=== PATIENT | female | born 1960 | race Caucasian/White ===

== ENCOUNTER 2025-03-10 12:20 | Inpatient (IN) | payer MEDICAID ==
[~2025-03-10] VITALS: Ht 175.3 cm; Wt 77.8 kg
--- NOTE | 2025-03-10 13:05 | HISTORY AND PHYSICAL ---
LIV RIBERA Mar 10, 2025 13:05
[2025-03-10 14:21] VITALS: RESP 16; O2SAT 97
[2025-03-10] MEDS ORDERED: OMEP20CA16 PO (18:23)
[2025-03-10] MEDS ORDERED: CHOLECALCIFEROL PO (18:23)
[2025-03-10] MEDS ORDERED: ATOR20TA PO (18:23)
[2025-03-10] MEDS ORDERED: BENZ1TAB97 PO (18:23)
[2025-03-10] MEDS ORDERED: FURO-150 PO (18:23)
[2025-03-10] MEDS ORDERED: PREG100C PO (18:23)
[2025-03-10] MEDS ORDERED: FLUO40CA10 PO (18:23)
[2025-03-10] MEDS ORDERED: POTA8TAB69 PO (18:23)
[2025-03-10] MEDS ORDERED: SUCR1TAB34 PO (18:23)
[2025-03-10] MEDS ORDERED: DULO60CA59 PO (18:23)
[2025-03-10] MEDS ORDERED: minipress PO (18:23)
[2025-03-10] MEDS ORDERED: QUET-1 PO (18:23)
[2025-03-10] MEDS ORDERED: folic PO (18:23)
[2025-03-10] MEDS ORDERED: LURA60TA PO (18:28)
[2025-03-10] MEDS ORDERED: LAMO25TA4 PO (18:28)
[2025-03-10 19:37] VITALS: RESP 14; O2SAT 97
[2025-03-10 19:41] VITALS: BP 97/58; PULSE 76; RESP 14; TEMP 98.3; O2SAT 97
[2025-03-10] MEDS ORDERED: loperamide 2mg capsule PO PRN (20:00)
[2025-03-10] MEDS ORDERED: mag hydrox/Alum hydrox/simeth 30ml oral suspension PO PRN (20:00)
[2025-03-10] MEDS ORDERED: magnesium hydroxide 30ml (MOM) UD suspension PO PRN (20:00)
[2025-03-10] MEDS ORDERED: FOLI1TAB27 PO (20:17)
[2025-03-10] MEDS ORDERED: ERGO500041 PO (20:17)
[2025-03-10] MEDS ORDERED: PRAZ1CAP5 PO (20:17)
[2025-03-10] MEDS: ergocalciferol (vit D2) capsule 50,000 UNITS (1,250mcg) CAPSULE PO SCH (20:40)
[2025-03-11 07:00] VITALS: RESP 16; O2SAT 100
[2025-03-11] MEDS: duloxetine 30mg CAPSULE.DR PO SCH (07:32)
[2025-03-11] MEDS: benztropine 1mg tablet PO SCH (07:34)
[2025-03-11] MEDS: pantoprazole 40mg Tablet.DR PO SCH (07:35)
[2025-03-11 08:00] VITALS: BP 97/60; PULSE 70; RESP 16; TEMP 98.1; O2SAT 100
[2025-03-11] MEDS: potassium chloride 8mEq ER tablet PO SCH (09:17)
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
--- NOTE | 2025-03-11 16:21 | ELECTROCARDIOGRAPH REPORT ---
[facility] Test Date: 2025-03-11 Test Time: 14:31:32 Pat Name: PRICE SILVA Department: 3rd FLOOR PCU Room: [facility] B Gender: F Project Portfolio Analyst: : 1960 Requested By: TOMMY RIZO Order Number: [id number] Reading MD: Dr. TONO Tang Measurements Intervals [place] Rate: 70 P: 46 SD: 163 QRS: 35 QRSD: 97 T: 42 QT: 411 QTc: 444 Interpretive Statements Sinus rhythm Borderline low voltage, extremity leads Electronically Signed On 03-11-2025 18:19:[address] TONO Tang Please click the below link to view image of tracing.
[2025-03-11 18:11] LABS: CHOL/HDL RATIO 3.0 (0.00-4.99); LDL CHOLESTEROL 108 MG/DL (50-100)
[2025-03-11 19:16] VITALS: RESP 16; O2SAT 98
[2025-03-11 19:20] VITALS: BP 107/71; PULSE 73; RESP 16; TEMP 98.4; O2SAT 98
--- NOTE | 2025-03-11 20:24 | HISTORY AND PHYSICAL ---
History & Physical Providers to CC ~ History of Present Illness Reason for Admit\\Complaint: Suicidal ideation/ suicidal gesture History of Present Illness This is the hospitalist history and physical exam note on patients hospitalized at [facility] [place] [facility]. The patient is on a 5150 hold for suicidal ideation she cut on her wrist superficially and thus this was a suicidal gesture as well per the psychiatry provider note the patient has audiovisual hallucinations when overwhelmed and sees things not there. The patient has no acute medical complaints the patient has has a stroke previously and her LDL cholesterol is 108 and HDL 75 with a total cholesterol of 223 the patient is on 20 mg of atorvastatin which is increased to 40 mg Allergies: Coded Allergies: No Known Allergies (Unverified , 03/10/25) Home Medications Home Medications Active Reported Prazosin Hcl 1 Mg Capsule 1 Cap PO HS Folic Acid* (Folic Acid) Y Tab 1 Tab PO DAILY Vitamin D2 (Ergocalciferol (Vitamin D2)) 1,250 Mcg (93031 Unit) Capsule 1 Cap PO Q7D Latuda (Lurasidone HCl) 60 Mg Tablet 1 Tab PO DAILY Lamictal (Lamotrigine) 25 Mg Tab.disper 100 Mg PO BID Carafate (Sucralfate) 1 Gram Tablet 1 Tab PO Q12H Seroquel (Quetiapine Fumarate) 100 Mg Tablet 4 Tab PO HS Lyrica (Pregabalin) 100 Mg Capsule 1 Cap PO Q8H PRN Klor-Con 8 (Potassium Chloride) 8 Meq Tablet.er 1 Tab PO DAILY Omeprazole 20 Mg Capsule.dr 2 Cap PO DAILY Lasix (Furosemide) 20 Mg Tablet 1 Tab PO DAILY Prozac (Fluoxetine HCl) 40 Mg Capsule 1 Cap PO QAM Cymbalta (Duloxetine HCl) 60 Mg Capsule.dr 1 Cap PO DAILY Cogentin* (Benztropine Mesylate) 1 Mg Tablet 2 Mg PO DAILY Lipitor (Atorvastatin Calcium) 20 Mg Tablet 1 Tab PO DAILY Past Medical History Past Medical History Hyperlipidemia Bipolar disorder Schizophrenia Chronic back pain Prior CVA Nocturnal hypoxia on 4 L of oxygen Past Surgical History Surgical History Comment Cholecystectomy Tonsillectomy Family History Family History: FH: breast cancer MOTHER Maternal grandmother Past Social History Social History Comment Does not smoke, or drink alcohol. Does smoke marijuana denies any illicit drug use ROS ROS Except for positives in the HPI the rest of the 14 point review systems is negative Exam Vitals: Vital Signs Date Time Temp Pulse Resp B/P (MAP) Pulse Ox O2 Delivery O2 Flow Rate FiO2 03/11/25 19:20 98.4 73 16 107/71 (83) 98 Room Air General: Gen. No acute distress alert and oriented Lungs clear to ascultation bilaterally, no wheezes rales or rhonchi appreciated Heart normal sinus rhythm no murmurs rubs or clicks noted Abdomen soft nontender bowel sounds are normoactive Lower extremities no clubbing cyanosis, nor edema appreciated bilaterally Problems: (1) Schizoaffective disorder, bipolar type Additional Plan # suicidal ideation with suicidal gesture # schizophrenia # bipolar disorder Followed by Psychiatry # hyperlipidemia Triglycerides of 202 Cholesterol of 223 LDL of 108 HDL of 75 Increase atorvastatin from 20-40 mg # possible history of CVA Not on aspirin Considers starting an 81 mg aspirin (the patient is on sucralfate and likely has has a prior GI bleed" Date of Service: Mar 11, 2025 Billing Provider: TYSON GOINS DO Common Visit Codes: [id number] INP/OBS CARE (MOD) TYSON GOINS DO Mar 11, 2025 20:24
[2025-03-12 07:00] VITALS: BP 83/57; RESP 16; TEMP 97.3; O2SAT 95
[2025-03-12 08:00] VITALS: RESP 16; O2SAT 95
[2025-03-12 18:29] VITALS: RESP 16
[2025-03-12 20:00] VITALS: BP 104/68; PULSE 75; RESP 16; TEMP 98.5; O2SAT 96
--- NOTE | 2025-03-12 20:21 | PROGRESS NOTE ---
Progress Note Dictate Providers to CC ~ Antibiotic Ordered?: No Objective Vitals Vital Signs Date Time Temp Pulse Resp B/P (MAP) Pulse Ox O2 Delivery O2 Flow Rate FiO2 03/12/25 18:29 16 Room Air 03/12/25 08:00 95 03/12/25 07:00 97.3 83/57 (66) 03/11/25 19:20 73 Problem\\Assessment\\Plan Problems/Diagnosis: (1) Schizoaffective disorder, bipolar type Psychiatrist's Progress Note Date of Service: Mar 12, 2025 Notes History of Present Illness Patient admitted on 5150 DTS, wanted to slash her wrist and make it go away, s tates that she made a feeble attempt to cut left wrist, her daughter caught her and called the help 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 He is very demanding, yells at her, she has to wake up at night to helpShe has hx of depression,dx with schizoaffective Bipolar type in the and has been on medication since then. She has been doing good so far with her medications until recently. AVH when she is overwhelmed, seeing things that are not there, a few months ago was sleep waking once, walked out of the house naked, have never happened again. She is receiving psychiatric care at [facility]. This is her 2nd suicide attempt with the initial attempt in 1989 by overdose. This is her 2nd hospitalization. No psych hx in the family. Hx of alcoholism, sober x 20 years. States she has no suicidal plans to kill herself at this time but just wants to get respite from all these responsibilities Assessment: Patient evaluated in the office, uses a wheelchair, states she slept very good, woke up rested, mood is better, no SI. spoke to her this morning, he was kind to her, does not feel she is ready to return home. Will take this time to work on her mental health. Doing better overrall but have not had a BM in 3 days, discussing precsribing Colace to promote regular BM to which she agreed. Will continue to monitor pt daily and adjust tx as needed, Mental Status Exam Appearance: groomed. in green scrubs Speech: normal rate/tone Eye Contact: Normal Motor Activity:calm Affect: congruent Mood: "ok" Orientation Impairment: Place, Object, Person Memory Impairment: None Attention: Normal Hallucinations: None Other: None Suicidality: None Homicidality: None Delusions: None Behavior: Cooperative Insight: Fair Judgment: Fair Medication Management: 1. Prozac 50 mg daily 2.Cymbalta 60 mg daily 3. latuda 60 mg daily 4.Seroquel 400 mg q hs 5.Prazosin 1 mg q hs 6. Hydroxyzine 50 mg q 6 prn anxiety 7. Trazodone 50 mg q hs 8. Start Colace 250 mg q hs Legal: 5150 w-patient have agreed to stay on vol after hold ends Continue Q 15 safety checks Total time spend: 60 minutes including but not limited to patient assessment, chart/lab/med review, discussions with RN/SW/CH, ordering meds/labs and CODING VISIT-PSYCHIATRY Date of Service: Mar 12, 2025 Billing Provider: TOMMY RIZO DNP Psych Common Visit Codes: [id number] INP/OBS CARE(Mod) TOMMY RIZO DNP Mar 12, 2025 20:21
[2025-03-12] MEDS: docusate sod 250mg capsule PO SCH (21:13)
[2025-03-12] MEDS: HYDROcodone/acetaminophen 5mg/325mg tablet PO PRN (21:13)
[2025-03-13 08:00] VITALS: RESP 16; O2SAT 98
[2025-03-13 08:55] VITALS: BP 104/64; PULSE 97; RESP 16; TEMP 97.8; O2SAT 98
[2025-03-13] MEDS ORDERED: LAMO100T PO (16:33)
[2025-03-13] MEDS ORDERED: DULO30CA52 PO (16:33)
[2025-03-13] MEDS ORDERED: LURA60TA PO (16:33)
[2025-03-13] MEDS ORDERED: FLUO-167 PO (16:33)
[2025-03-13] MEDS ORDERED: PRAZ1CAP5 PO (16:33)
[2025-03-13] MEDS ORDERED: BENZ1TAB97 PO (16:33)
[2025-03-13] MEDS ORDERED: COL250C PO (16:33)
[2025-03-13] MEDS ORDERED: QUET400T13 PO (16:33)
--- NOTE | 2025-03-13 18:21 | PROGRESS NOTE ---
Daily Progress Note Providers to CC ~ Antibiotic Timeout Antibiotic Ordered?: No Subjective This is the hospitalist progress note on patients hospitalized at [facility]/ [facility] [place] [facility]. The patient has no acute medical complaints or concerns and none were voiced by nursing staff Objective Vital Signs Date Time Temp Pulse Resp B/P (MAP) Pulse Ox O2 Delivery O2 Flow Rate FiO2 03/13/25 08:55 97.8 97 16 104/64 (77) 98 Room Air Gen. No acute distress alert and oriented Lungs clear to ascultation bilaterally, no wheezes rales or rhonchi appreciated Heart normal sinus rhythm no murmurs rubs or clicks noted Abdomen soft nontender bowel sounds are normoactive Lower extremities no clubbing cyanosis, nor edema appreciated bilaterally Problem\\Assessment\\Plan Problems/Diagnosis: (1) Schizoaffective disorder, bipolar type # suicidal ideation with suicidal gesture # schizophrenia # bipolar disorder Followed by Psychiatry # hyperlipidemia Triglycerides of 202 Cholesterol of 223 LDL of 108 HDL of 75 Increase atorvastatin from 20-40 mg # possible history of CVA Not on aspirin Considers starting an 81 mg aspirin (the patient is on sucralfate and likely has has a prior GI bleed" No acute medical complaints or concerns voiced today 03/13/2025 by the patient nor Noy [facility] Hospitalist service will continue to follow the patient Date of Service: Mar 13, 2025 Billing Provider: TYSON GOINS DO Common Visit Codes: [id number] INP/OBS CARE(LOW) TYSON GOINS DO Mar 13, 2025 18:21
[2025-03-13 19:00] VITALS: RESP 16; O2SAT 97
[2025-03-13 20:00] VITALS: BP 117/60; PULSE 78; RESP 16; TEMP 98.6; O2SAT 97
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
[2025-03-14 07:00] VITALS: BP 87/60; PULSE 68; RESP 16; TEMP 97.4; O2SAT 99
[2025-03-14 07:39] VITALS: RESP 16
--- NOTE | 2025-03-14 22:30 | DISCHARGE SUMMARY ---
Discharge Summary Providers to CC ~ Discharge Summary Admission Diagnosis: Schizoaffective disorder Bipolar Type Hospital Course DATE OF ADMISSION: 03/10/25 DATE OF DISCHARGE:03/14/25 Discharge Diagnosis\Comment: Reason for Admission: Vianey was admitted under a 5150 hold due to suicidal ideation, precipitated by significant stress and feelings of being overwhelmed while caring for her , who is a double amputee. During her hospitalization, [facility] medications were adjusted to better address her symptoms of depression and anxiety. She participated in group therapy, focusing on stress management, coping skills, and emotional support. Mental Status Examination (MSE) at Discharge: Appearance: Well-groomed, appropriate attire Behavior: Cooperative, engaged Speech: Normal rate and volume Mood: Improved, stable Affect: Appropriate to content Thought Process: Logical and goal-directed Thought Content: Denies current suicidal ideation (SI) and homicidal ideation (HI) Cognition: Alert and oriented to person, place, time, and situation Insight and Judgment: Improved, recognizes need for ongoing support and self- care Operations\Procedures: none Consultants: Medical contitions/concerns managed by the Hospitalists team Complications: none Condition on DC: Stable 2 or more antipsychotic used: No 2/more antipsychotic addressed: No Does Patient smoke: No Smoking education given.: No New Medications: Docusate Sodium (Docusate Sodium) 250 Mg Capsule 250 MG PO HS for 30 Days, #30 CAP Duloxetine HCl (Duloxetine HCl) 30 Mg Capsule.dr 60 MG PO DAILY for 30 Days, #60 CAP.SR Fluoxetine HCl (Fluoxetine HCl) 20 Mg Capsule 60 MG PO QAM for 30 Days, #90 CAP Lamotrigine (LaMICtal tablet) 100 Mg Tablet 100 MG PO BID for 30 Days, #60 TAB Lurasidone HCl (Latuda) 60 Mg Tablet 60 MG PO DAILY for 30 Days, #30 TAB Prazosin Hcl (Prazosin Hcl) 1 Mg Capsule 1 MG PO HS for 30 Days, #30 CAP Quetiapine Fumarate (Quetiapine Fumarate) 400 Mg Tablet 1 TAB PO HS for insomnia for 30 Days, #30 TAB 0 Refills Continued Medications: Atorvastatin Calcium (Lipitor) 20 Mg Tablet 1 TAB PO DAILY, TAB Benztropine Mesylate* (Cogentin*) 1 Mg Tablet 2 MG PO DAILY for 30 Days, #30 TAB (This prescription has been renewed) Ergocalciferol (Vitamin D2) (Vitamin D2) 1,250 Mcg (43292 Unit) Capsule 1 CAP PO Q7D Folic Acid* (Folic Acid*) Y Tab 1 TAB PO DAILY Furosemide (Lasix) 20 Mg Tablet 1 TAB PO DAILY, TAB Omeprazole (Omeprazole) 20 Mg Capsule.dr 2 CAP PO DAILY, CAP Potassium Chloride (Klor-Con 8) 8 Meq Tablet.er 1 TAB PO DAILY, TAB Pregabalin (Lyrica) 100 Mg Capsule 1 CAP PO Q8H PRN for pain, CAP Sucralfate (Carafate) 1 Gram Tablet 1 TAB PO Q12H, TAB Discontinued Medications: Duloxetine HCl (Cymbalta) 60 Mg Capsule.dr 1 CAP PO DAILY, CAP Fluoxetine HCl (Prozac) 40 Mg Capsule 1 CAP PO QAM, CAP Lamotrigine (Lamictal) 25 Mg Tab.disper 100 MG PO BID, TAB Lurasidone HCl (Latuda) 60 Mg Tablet 1 TAB PO DAILY, TAB Prazosin Hcl (Prazosin Hcl) 1 Mg Capsule 1 CAP PO HS Quetiapine Fumarate (Seroquel) 100 Mg Tablet 4 TAB PO HS, TAB Discharge Summary: Risk Assessment: Suicidal Ideation: Denied at discharge Self-Harm Risk: Low, with no current intent or plan Support System: Discharged home, plans for outpatient follow-up in place Discharge Plan: Vianey is discharged home with a 30-day supply of her adjusted medications. She is advised to follow up with [facility] for ongoing therapy and medication management. Crisis and Emergency Resources: Emergency Services: Call 911 or go to the nearest emergency room if immediate help is needed. National Suicide Prevention Lifeline: 0-668-858-NHEW ( ) Crisis Text Line: Text HOME to 056501 Discharge Instructions: Continue taking prescribed medications as directed. Attend follow-up appointments and therapy sessions. Utilize coping strategies learned in therapy to manage stress and emotions. Reach out to support systems and resources as needed. *Problems/Diagnosis: (1) Schizoaffective disorder, bipolar type Total Time Spent on D/C: > 30 Minutes Counseling Services Smoking & Tobacco Cessation: N/A CODING VISIT-PSYCHIATRY Date of Service: Mar 14, 2025 Billing Provider: TOMMY RIZO DNP Psych Common Visit Codes: [id number] DISCH DAY >30min TOMMY RIZO DNP Mar 14, 2025 22:30
== END 2025-03-14 12:26 | disposition home or self-care (01) | DRG 750 ==
LOC: ADULT MH 12:20
PROVIDERS: ADMIT Psychiatry & Neurology Psychiatry; ATTEND Psychiatry & Neurology Psychiatry
PROC: GZHZZZZ Group Psychotherapy (ICD-10-PCS; principal; 2025-03-14)
DX: F25.0 Schizoaffective disorder, bipolar type (principal); R45.851 Suicidal ideations; E78.5 Hyperlipidemia, unspecified; F31.9 Bipolar disorder, unspecified; F10.21 Alcohol dependence, in remission; G47.00 Insomnia, unspecified; Z79.899 Other long term (current) drug therapy; Z80.3 Family history of malignant neoplasm of breast; Z86.73 Personal history of transient ischemic attack (TIA), and cerebral infarction without residual deficits; Z91.018 Allergy to other foods
CPT/HCPCS: 36415; 80061; 83036; 87081; 93005; Q0177